=== PATIENT | female | born 1960 | race Two or more races ===

== ENCOUNTER 2018-05-07 15:07 | Inpatient (IN) | payer OTHER ==
[2018-05-07 17:45] VITALS: BMI 24.3
--- NOTE | 2018-05-07 19:57 | HP ---
CIWA Score - CIWA Score Nausea/Vomitin Muscle Tremors: 3 Anxiety: 2 Agitation: 2 Paroxysmal Sweats: 3 Orientation: 0-Oriented Tacttile Disturbances: 2-Mild Itch/Numbness/Burn Auditory Disturbances: 2-Mild Harshness/Frighten Visual Disturbances: 2-Mild Sensitivity Headache: 3-Moderate CIWA-Ar Total Score: 22 Admission ROS BHS - HPI Chief Complaint: DEPENDENT ON ETOH ONLY Allergies/Adverse Reactions: Allergies Allergy/AdvReac Type Severity Reaction Status Date / Time No Known Allergies Allergy Verified 05/07/18 18:23 History of Present Illness: THE PT. IS REQUESTING ADMISSION TO THE [facility] AND CAME FOR H AND PE Exam Limitations: No Limitations - Ebola screening Have you traveled outside of the country in the last 21 days: No (N) Have you had contact with anyone from an Ebola affected area: No Have you been sick,other than usual withdrawal symptoms: No Do you have a fever: No - Review of Systems Constitutional: See HPI, Loss of Appetite, Malaise, Weakness, Unintentional Wgt. Loss EENT: reports: See HPI Respiratory: reports: See HPI Cardiac: reports: See HPI, Edema GI: reports: See HPI, Poor Appetite, Abdominal cramping : reports: No Symptoms Reported, See HPI Musculoskeletal: reports: See HPI, Muscle Pain, Muscle Weakness Integumentary: reports: See HPI, Sweating Neuro: reports: See HPI, Headache, Tremors, Weakness Endocrine: reports: See HPI Hematology: reports: See HPI Psychiatric: reports: Judgement Intact, Orientated x3, Anxious, Depressed Patient History - Patient Medical History Hx Asthma: No Hx Hypertension: Yes Hx Seizures: No Hx Diabetes: No Hx Gastrointestinal Disorders: No Hx Depression: Yes (AND ANXIETY) - Patient Surgical History Past Surgical History: No - PPD History Previous Implant?: Yes Documented Results: Negative w/o proof - Reproductive History Patient is a Female of Child Bearing Age (11 -55 yrs old): No LMP comment: 5 YRS. AGO Patient : No - Smoking Cessation Smoking history: Current every day smoker Have you smoked in the past 12 months: Yes Cigars Per Day: 10 Hx Chewing Tobacco Use: No Initiated information on smoking cessation: Yes 'Breaking Loose' booklet given: 05/07/18 - Substance & Tx. History Hx Alcohol Use: Yes Hx Substance Use: No Substance Use Type: Alcohol Hx Substance Use Treatment: No - Substances Abused Alcohol Route: Oral Frequency: Daily Amount used: Beer 12 OZS. X 8 Age of first use: 34 Date of Last Use: 05/07/18 Family Disease History - Family Disease History Family History: Denies Admission Physical Exam [facility] - Vital Signs Vital Signs: Vital Signs - 24 hr 05/07/18 17:40 Temperature 98.5 F Pulse Rate 85 Respiratory 21 Rate Blood Pressure 195/85 - Physical General Appearance: Yes: No Apparent Distress, Appropriately Dressed, Alcohol on Breath, Thin, Tremorous, Sweating, Anxious HEENTM: Yes: Normocephalic, Normal Voice, GLORIA, Pharynx Normal Respiratory: Yes: Chest Non-Tender, Lungs Clear, Normal Breath Sounds, No Respiratory Distress, No Accessory Muscle Use Neck: Yes: No masses,lesions,Nodules, Supple, Trachea in good position Breast: Yes: Breast Exam Deferred, Axillae without masses Cardiology: Yes: Regular Rhythm, S1, S2, Tachycardia Abdominal: Yes: Normal Bowel Sounds, Non Tender, Soft, Protuberent Back: Yes: Normal Inspection Musculoskeletal: Yes: full range of Motion, Pelvis Stable, Muscle Pain, Muscle weakness Extremities: Yes: Normal Capillary Refill, Normal Range of Motion, Non-Tender, Tremors, Swelling Neurological: Yes: Fully Oriented, Alert, Motor Strength 5/5, Depressed Affect Integumentary: Yes: Normal Color, Warm, Moist Lymphatic: Yes: Within Normal Limits - Diagnostic (1) EtOH dependence Current Visit: Yes Status: Acute Qualifiers: Substance use status: uncomplicated Qualified Code(s): F10.20 - Alcohol dependence, uncomplicated (2) HTN (hypertension) Current Visit: Yes Status: Acute Qualifiers: Hypertension type: essential hypertension Qualified Code(s): I10 - Essential (primary) hypertension (3) Anxiety and depression Current Visit: Yes Status: Acute (4) Nicotine dependence Current Visit: Yes Status: Acute Qualifiers: Nicotine product type: other Substance use status: uncomplicated Qualified Code(s): F17.290 - Nicotine dependence, other tobacco product, uncomplicated Comment: SMOKING CIGARS Cleared for Admission [facility] - Detox or Rehab [facility] Level of Care: Medically Managed Detox Regimen/Protocol: Librium [facility] Breath Alcohol Content Breath Alcohol Content: 0.103 Urine Pregancy Test - Result Urine Test Results: Negative- NO Line Present Urine Drug Screen - Results Drug Screen Negative: Yes
[2018-05-07] MEDS ORDERED: MAGNESIUM HYDROX 2400MG/30ML ORAL SUSPENSION 30 ML CUP PO PRN (20:09)
[2018-05-07] MEDS ORDERED: ACETAMINOPHEN 325 MG TABLET (FP) PO PRN (20:09)
[2018-05-07] MEDS ORDERED: P-EPHED 60MG/TRIPROLIDI 2.5MG TABLET PO PRN (20:09)
[2018-05-07] MEDS ORDERED: hydrOXYzine PAMOATE 25 MG CAPSULE (FP) PO PRN (20:09)
[2018-05-07] MEDS ORDERED: guaiFENesin/D-METHORPHAN HB 10 ML UNIT-DOSE CUPS PO PRN (20:09)
[2018-05-07] MEDS ORDERED: MENTHOL/PHENOL 1 EACH UD MM PRN (20:09)
[2018-05-07] MEDS ORDERED: NICOTINE POLACRILEX 2 MG GUM BC PRN (20:09)
[2018-05-07] MEDS ORDERED: MAG HYDROX/AL HYDROX/SIMETH 30 ML UNIT-DOSE CUP PO PRN (20:09)
[2018-05-07] MEDS ORDERED: MAGNESIUM CITRATE 300 ML BOTTLE PO PRN (20:09)
[2018-05-07] MEDS ORDERED: chlordiazePOXIDE HCL 25 MG CAPSULE PO PRN (20:09)
[2018-05-07] MEDS ORDERED: LOPERAMIDE HCL 2 MG CAPSULE PO PRN (20:09)
[2018-05-07] MEDS ORDERED: chlordiazePOXIDE HCL 25 MG CAPSULE PO ONE (20:15)
[2018-05-07] MEDS ORDERED: MELATONIN 5 MG TABLETS PO PRN (22:00)
[2018-05-07] MEDS: THIAMINE HCL 100 MG TABLET (FP) PO SCH (22:32)
[2018-05-07] MEDS: FUROSEMIDE 40 MG TABLET (FP) PO SCH (22:32)
[2018-05-07] MEDS: amLODIPine BESYLATE 5 MG TABLET (FP) PO SCH (22:32)
[2018-05-07] MEDS: chlordiazePOXIDE HCL 25 MG CAPSULE PO SCH (22:49)
[2018-05-08] MEDS: chlordiazePOXIDE HCL 25 MG CAPSULE PO SCH ×4 (06:00→22:50)
[2018-05-08] MEDS: FUROSEMIDE 40 MG TABLET (FP) PO SCH ×2 (06:02→14:35)
[2018-05-08 09:56] LABS: HEMATOCRIT 36.3 % (32.4-45.2); HEMOGLOBIN 12.5 GM/dL (10.7-15.3); MCH 33.8 pg (25.7-33.7); MCHC 34.4 g/dl (32.0-36.0); MEAN CELL VOLUME 98.4 fl (80-96); MEAN PLT VOLUME 7.3 fl (7.5-11.1); PLATELET COUNT 225 K/MM3 (134-434); RBC 3.69 M/mm3 (3.60-5.2); RDW 12.8 % (11.6-15.6); WHITE BLOOD COUNT 4.5 K/mm3 (4.0-10.0)
[2018-05-08] MEDS: PRENATAL VITAMINS W/ FOLIC ACID TABLET (FP) PO SCH (10:23)
[2018-05-08] MEDS: amLODIPine BESYLATE 5 MG TABLET (FP) PO SCH (10:23)
[2018-05-08] MEDS: NICOTINE 14 MG/24 HOURS TOPICAL PATCH TD SCH (10:24)
--- NOTE | 2018-05-08 10:33 | PN ---
[facility] CIWA - CIWA Score Nausea/Vomitin Muscle Tremors: 3 Anxiety: 3 Agitation: 3 Paroxysmal Sweats: 1-Minimal Palms Moist Orientation: 0-Oriented Tacttile Disturbances: 1-Very Mild Itch/Numbness Auditory Disturbances: 1-Very Mild Visual Disturbances: 0-None Headache: 2-Mild CIWA-Ar Total Score: 17 S Progress Note (SOAP) Subjective: alert,irritable,anxious,interrupted sleep,tremor,edema both legs Objective: 05/08/18 10:30 Vital Signs Temperature 98.2 F 05/08/18 09:10 Pulse Rate 76 05/08/18 10:00 Respiratory Rate 18 05/08/18 10:00 Blood Pressure 176/75 05/08/18 09:10 O2 Sat by Pulse Oximetry (%) ekg nsr,inverted t in 1,avl,v2 to v6,lvh qt 464/501 no chest pain,no sob,no dizziness Laboratory Last Values WBC 4.5 K/mm3 (4.0-10.0) 05/08/18 07:00 RBC 3.69 M/mm3 (3.60-5.2) 05/08/18 07:00 Hgb 12.5 GM/dL (10.7-15.3) 05/08/18 07:00 Hct 36.3 % (32.4-45.2) 05/08/18 07:00 MCV 98.4 fl (80-96) H 05/08/18 07:00 MCH 33.8 pg (25.7-33.7) H 05/08/18 07:00 MCHC 34.4 g/dl (32.0-36.0) 05/08/18 07:00 RDW 12.8 % (11.6-15.6) 05/08/18 07:00 Plt Count 225 K/MM3 (134-434) 05/08/18 07:00 MPV 7.3 fl (7.5-11.1) L 05/08/18 07:00 labs pending repeat ekg today Assessment: 05/08/18 10:33 withdrawal symptom Plan: continue detox,repeat ekg today
--- NOTE | 2018-05-08 11:28 | EKG ---
Test Reason : Blood Pressure : / mmHG Vent. Rate : 073 BPM Atrial Rate : 073 BPM P-R Int : 172 ms QRS Dur : 102 ms QT Int : 426 ms P-R-T Axes : 059 063 117 degrees QTc Int : 469 ms NORMAL SINUS RHYTHM POSSIBLE LEFT ATRIAL ENLARGEMENT LEFT VENTRICULAR HYPERTROPHY NONSPECIFIC T WAVE ABNORMALITY PROLONGED QT ABNORMAL ECG Confirmed by MD ALONZO, RAFA ([id number]) on 05/08/2018 11:28:28 AM Referred By: Confirmed By:RAFA ROSADO MD
--- NOTE | 2018-05-08 11:30 | EKG ---
Test Reason : Blood Pressure : / mmHG Vent. Rate : 070 BPM Atrial Rate : 070 BPM P-R Int : 180 ms QRS Dur : 110 ms QT Int : 464 ms P-R-T Axes : 060 061 117 degrees QTc Int : 501 ms NORMAL SINUS RHYTHM VOLTAGE CRITERIA FOR LEFT VENTRICULAR HYPERTROPHY T WAVE ABNORMALITY, CONSIDER ANTEROLATERAL ISCHEMIA PROLONGED QT ABNORMAL ECG Confirmed by MD ALONZO, RAFA ([id number]) on 05/08/2018 11:30:12 AM Referred By: Confirmed By:RAFA ROSADO MD
[2018-05-08 12:00] LABS: CALCIUM 8.7 mg/dL (8.5-10.1); CHLORIDE 96 mmol/L (98-107); POTASSIUM 4.1 mmol/L (3.5-5.1); SODIUM 131 mmol/L (136-145)
[2018-05-08 12:07] LABS: ALK PHOS 69 U/L (45-117); ANION GAP 7 (8-16); BILIRUBIN,TOTAL 0.5 mg/dL (0.2-1.0); BLOOD UREA NITROGEN 9 mg/dL (7-18); CO2 28 mmol/L (21-32); CREATININE 0.7 mg/dL (0.55-1.02); GLUCOSE,RANDOM 96 mg/dL (74-106); SGOT/AST 23 U/L (15-37); SGPT/ALT 26 U/L (12-78); TOT PROT 7.3 g/dl (6.4-8.2)
[2018-05-08] MEDS: IBUPROFEN 400 MG TABLET (FP) PO PRN ×2 (14:57→22:50)
--- NOTE | 2018-05-08 15:14 | CONSULT ---
[facility] Psychiatric Consult - Data Date of interview: 05/08/18 Admission source: [facility] Identifying data: Patient is a 57 year old female, mother of one, unemployed, domiciled, and supported by [facility]. This is patient's first admission to detox at [facility]. Pt. admitted to for alcohol dependence. Substance Abuse History: Smoking Cessation. Smoking history: Current every day smoker. Have you smoked in the past 12 months: Yes. Cigars Per Day: 10. Hx Chewing Tobacco Use: No. Initiated information on smoking cessation: Yes. ' Breaking Loose' booklet given: 05/07/18. - Substance & Tx. History. Hx Alcohol Use: Yes. Hx Substance Use: No. Substance Use Type: Alcohol. Hx Substance Use Treatment: No. - Substances Abused. Alcohol. Route: Oral. Frequency: Daily. Amount used: Beer 12 OZS. X 8. Age of first use: 34. Date of Last Use: 05/07/18 Medical History: hypertension Psychiatric History: Patient reports one psychiatric hospitalization for depression at [facility] approximately 20 years ago (was prescribed abilify 5mg + Cogentin 1mg). Pt. denies h/o OPD. Pt. reports bilateral swelling and hypertension after her PCP restarted patient on abilify 10mg + Cogentin 1mg. Reports last taking abilify approximately 1-2 months ago. Pt. denies suicide attempt. Physical/Sexual Abuse/Trauma History: Denies Mental Status Exam - Mental Status Exam Alert and Oriented to: Time, Place, Person Cognitive Function: Good Patient Appearance: Well Groomed Mood: Hopeful, Euthymic Affect: Mood Congruent Patient Behavior: Appropriate, Cooperative Speech Pattern: Appropriate Voice Loudness: Normal Thought Process: Intact, Goal Oriented Thought Disorder: Not Present Hallucinations: Denies Suicidal Ideation: Denies Homicidal Ideation: Denies Insight/Judgement: Poor Sleep: Fair Appetite: Fair Muscle strength/Tone: Normal Gait/Station: Normal Psychiatric Findings - Problem List ([place] 1, 2,3) (1) Alcohol dependence with uncomplicated withdrawal Current Visit: Yes Status: Acute (2) HTN (hypertension) Current Visit: Yes Status: Acute Qualifiers: Hypertension type: essential hypertension Qualified Code(s): I10 - Essential (primary) hypertension (3) Nicotine dependence Current Visit: Yes Status: Acute Qualifiers: Nicotine product type: other Substance use status: uncomplicated Qualified Code(s): F17.290 - Nicotine dependence, other tobacco product, uncomplicated Comment: SMOKING CIGARS - Initial Treatment Plan Initial Treatment Plan: Psychoeducation provided. Detoxification in progress. Observation.
[2018-05-08] MEDS: LOSARTAN POTASSIUM 50 MG TABLET (FP) PO SCH (17:35)
[2018-05-08] MEDS ORDERED: amLODIPine BESYLATE 5 MG TABLET (FP) PO STA (22:52)
[2018-05-08] MEDS: THIAMINE HCL 100 MG TABLET (FP) PO SCH (22:53)
[2018-05-09] MEDS: chlordiazePOXIDE HCL 25 MG CAPSULE PO SCH ×3 (05:52→18:28)
[2018-05-09] MEDS: FUROSEMIDE 40 MG TABLET (FP) PO SCH (05:52)
[2018-05-09] MEDS ORDERED: HYDROCHLOROTHIAZIDE 12.5 MG CAPSULE (FP) PO SCH (10:00)
[2018-05-09] MEDS: LOSARTAN POTASSIUM 50 MG TABLET (FP) PO SCH (10:01)
[2018-05-09] MEDS: PRENATAL VITAMINS W/ FOLIC ACID TABLET (FP) PO SCH (10:01)
[2018-05-09] MEDS: amLODIPine BESYLATE 10 MG TABLET (FP) PO SCH (10:01)
[2018-05-09] MEDS: NICOTINE 14 MG/24 HOURS TOPICAL PATCH TD SCH (10:02)
--- NOTE | 2018-05-09 11:53 | PN ---
S CIWA - CIWA Score Nausea/Vomitin Muscle Tremors: 3 Anxiety: 3 Agitation: 2 Paroxysmal Sweats: 1-Minimal Palms Moist Orientation: 0-Oriented Tacttile Disturbances: 1-Very Mild Itch/Numbness Auditory Disturbances: 1-Very Mild Visual Disturbances: 0-None Headache: 2-Mild CIWA-Ar Total Score: 16 S Progress Note (SOAP) Subjective: alert,irritable,anxious,interrupted sleep,edema of legs and foot much less Objective: 05/09/18 11:51 Vital Signs Temperature 96.4 F L 05/09/18 09:10 Pulse Rate 75 05/09/18 09:10 Respiratory Rate 20 05/09/18 09:10 Blood Pressure 174/82 05/09/18 09:10 O2 Sat by Pulse Oximetry (%) Laboratory Last Values WBC 4.5 K/mm3 (4.0-10.0) 05/08/18 07:00 RBC 3.69 M/mm3 (3.60-5.2) 05/08/18 07:00 Hgb 12.5 GM/dL (10.7-15.3) 05/08/18 07:00 Hct 36.3 % (32.4-45.2) 05/08/18 07:00 MCV 98.4 fl (80-96) H 05/08/18 07:00 MCH 33.8 pg (25.7-33.7) H 05/08/18 07:00 MCHC 34.4 g/dl (32.0-36.0) 05/08/18 07:00 RDW 12.8 % (11.6-15.6) 05/08/18 07:00 Plt Count 225 K/MM3 (134-434) 05/08/18 07:00 MPV 7.3 fl (7.5-11.1) L 05/08/18 07:00 Sodium 131 mmol/L (136-145) L 05/08/18 07:00 Potassium 4.1 mmol/L (3.5-5.1) 05/08/18 07:00 Chloride 96 mmol/L (98-107) L 05/08/18 07:00 Carbon Dioxide 28 mmol/L (21-32) 05/08/18 07:00 Anion Gap 7 (8-16) L 05/08/18 07:00 BUN 9 mg/dL (7-18) 05/08/18 07:00 Creatinine 0.7 mg/dL (0.55-1.02) 05/08/18 07:00 Creat Clearance w eGFR > 60 (>60) 05/08/18 07:00 Random Glucose 96 mg/dL (74-106) 05/08/18 07:00 Calcium 8.7 mg/dL (8.5-10.1) 05/08/18 07:00 Total Bilirubin 0.5 mg/dL (0.2-1.0) 05/08/18 07:00 AST 23 U/L (15-37) 05/08/18 07:00 ALT 26 U/L (12-78) 05/08/18 07:00 Alkaline Phosphatase 69 U/L (45-117) 05/08/18 07:00 Total Protein 7.3 g/dl (6.4-8.2) 05/08/18 07:00 Albumin 4.0 g/dl (3.4-5.0) 05/08/18 07:00 RPR Titer Nonreactive (NONREACTIVE) 05/08/18 07:00 HIV 1&2 Antibody Screen Negative 05/08/18 07:00 HIV P24 Antigen Negative 05/08/18 07:00 Assessment: 05/09/18 11:51 withdrawal symptom Plan: continue detox,bp monitoring,na 131 hyponatremia,repeat bmp in am
[2018-05-09] MEDS ORDERED: cloNIDine HCL 0.1 MG TABLET PO ONE (15:00)
[2018-05-09 17:31] LABS: URINE APPEARANCE CLEAR; URINE BILIRUBIN NEGATIVE (<2.0 mg/dL); URINE COLOR COLORLESS; URINE GLUCOSE (UA) NEGATIVE (NEGATIVE); URINE KETONE NEGATIVE (NEGATIVE); URINE LEUK ESTERASE TRACE (NEGATIVE); URINE NITRITE NEGATIVE (NEGATIVE); URINE PROTEIN NEGATIVE (NEGATIVE); URINE UROBILINOGEN NEGATIVE mg/dL (0.2-1.0)
[2018-05-09 17:38] LABS: EPI CELLS RARE /HPF (FEW); URINE MUCUS RARE
[2018-05-09] MEDS: chlordiazePOXIDE 5 MG CAPSULE PO SCH (22:33)
[2018-05-09] MEDS: THIAMINE HCL 100 MG TABLET (FP) PO SCH (22:43)
[2018-05-10] MEDS: chlordiazePOXIDE 5 MG CAPSULE PO SCH ×3 (06:04→17:28)
--- NOTE | 2018-05-10 10:16 | PN ---
S Progress Note (SOAP) Subjective: alert,irritable,anxious,interrupted sleep, Objective: 05/10/18 10:12 Vital Signs Temperature 97.9 F 05/10/18 10:12 Pulse Rate 84 05/10/18 10:12 Respiratory Rate 16 05/10/18 10:12 Blood Pressure 186/88 05/10/18 10:12 O2 Sat by Pulse Oximetry (%) no chest pain,no sob,no dizziness repeat bmp pending Assessment: 05/10/18 10:14 withdrawal symptom Plan: continue detox,bp monitoring,increase hydrochlorothiazide to 25 mgs po daily, lasartan to 100 mgs po daily, continue amlodipine 10 mgs po daily,discharge in am
[2018-05-10] MEDS: PRENATAL VITAMINS W/ FOLIC ACID TABLET (FP) PO SCH (10:24)
[2018-05-10] MEDS: amLODIPine BESYLATE 10 MG TABLET (FP) PO SCH (10:24)
[2018-05-10] MEDS: FUROSEMIDE 40 MG TABLET (FP) PO SCH (10:24)
[2018-05-10] MEDS: LOSARTAN POTASSIUM 50 MG TABLET (FP) PO SCH (10:25)
[2018-05-10] MEDS: NICOTINE 14 MG/24 HOURS TOPICAL PATCH TD SCH (10:25)
[2018-05-10] MEDS: HYDROCHLOROTHIAZIDE 25 MG TABLET (FP) PO SCH (10:25)
[2018-05-10 10:46] LABS: ANION GAP 7 (8-16); BLOOD UREA NITROGEN 15 mg/dL (7-18); CALCIUM 9.2 mg/dL (8.5-10.1); CHLORIDE 94 mmol/L (98-107); CO2 31 mmol/L (21-32); CREATININE 0.6 mg/dL (0.55-1.02); GLUCOSE,RANDOM 77 mg/dL (74-106); POTASSIUM 3.9 mmol/L (3.5-5.1); SODIUM 132 mmol/L (136-145)
--- NOTE | 2018-05-10 21:30 | PN ---
S Progress Note Note: Vital Signs Temperature 97.7 F 05/10/18 18:27 Pulse Rate 81 05/10/18 18:27 Respiratory Rate 19 05/10/18 18:27 Blood Pressure 188/89 05/10/18 18:27 O2 Sat by Pulse Oximetry (%) asymptomatic elevated BP clonidine 0.1mg increase fluids continue to monitor
[2018-05-10] MEDS ORDERED: cloNIDine HCL 0.1 MG TABLET PO ONE (21:45)
[2018-05-10] MEDS: chlordiazePOXIDE HCL 10 MG CAPSULE PO SCH (22:20)
[2018-05-10] MEDS: THIAMINE HCL 100 MG TABLET (FP) PO SCH (22:20)
[2018-05-11] MEDS: chlordiazePOXIDE HCL 10 MG CAPSULE PO SCH ×2 (06:07→10:20)
--- NOTE | 2018-05-11 08:33 | PN ---
S Progress Note (SOAP) Subjective: alert,no complaint Objective: 05/11/18 08:31 Vital Signs Temperature 97.3 F L 05/11/18 06:00 Pulse Rate 75 05/11/18 07:00 Respiratory Rate 20 05/11/18 07:00 Blood Pressure 158/89 05/11/18 07:00 O2 Sat by Pulse Oximetry (%) Assessment: 05/11/18 08:31 detox completed,no withdrawal symptom Plan: discharge today,follow up [facility] arrangement
--- NOTE | 2018-05-11 08:36 | DS ---
[facility] Detox Discharge Summary Admission Date: 05/07/18 Discharge Date: 05/11/18 - History Present History: Alcohol Dependence Additional Comments: follow up [facility] as arrangement Pertinent Past History: essential hypertension edema both legs - Physical Exam Results Vital Signs: Vital Signs Temperature 97.3 F L 05/11/18 06:00 Pulse Rate 75 05/11/18 07:00 Respiratory Rate 20 05/11/18 07:00 Blood Pressure 158/89 05/11/18 07:00 O2 Sat by Pulse Oximetry (%) Pertinent Admission Physical Exam Findings: withdrawal signs and symptom Vital Signs Temperature 97.3 F L 05/11/18 06:00 Pulse Rate 75 05/11/18 07:00 Respiratory Rate 20 05/11/18 07:00 Blood Pressure 158/89 05/11/18 07:00 O2 Sat by Pulse Oximetry (%) Laboratory Last Values WBC 4.5 K/mm3 (4.0-10.0) 05/08/18 07:00 RBC 3.69 M/mm3 (3.60-5.2) 05/08/18 07:00 Hgb 12.5 GM/dL (10.7-15.3) 05/08/18 07:00 Hct 36.3 % (32.4-45.2) 05/08/18 07:00 MCV 98.4 fl (80-96) H 05/08/18 07:00 MCH 33.8 pg (25.7-33.7) H 05/08/18 07:00 MCHC 34.4 g/dl (32.0-36.0) 05/08/18 07:00 RDW 12.8 % (11.6-15.6) 05/08/18 07:00 Plt Count 225 K/MM3 (134-434) 05/08/18 07:00 MPV 7.3 fl (7.5-11.1) L 05/08/18 07:00 Sodium 132 mmol/L (136-145) L 05/10/18 07:30 Potassium 3.9 mmol/L (3.5-5.1) 05/10/18 07:30 Chloride 94 mmol/L (98-107) L 05/10/18 07:30 Carbon Dioxide 31 mmol/L (21-32) 05/10/18 07:30 Anion Gap 7 (8-16) L 05/10/18 07:30 BUN 15 mg/dL (7-18) 05/10/18 07:30 Creatinine 0.6 mg/dL (0.55-1.02) 05/10/18 07:30 Creat Clearance w eGFR > 60 (>60) 05/10/18 07:30 Random Glucose 77 mg/dL (74-106) 05/10/18 07:30 Calcium 9.2 mg/dL (8.5-10.1) 05/10/18 07:30 Total Bilirubin 0.5 mg/dL (0.2-1.0) 05/08/18 07:00 AST 23 U/L (15-37) 05/08/18 07:00 ALT 26 U/L (12-78) 05/08/18 07:00 Alkaline Phosphatase 69 U/L (45-117) 05/08/18 07:00 Total Protein 7.3 g/dl (6.4-8.2) 05/08/18 07:00 Albumin 4.0 g/dl (3.4-5.0) 05/08/18 07:00 Urine Color Colorless 05/09/18 14:00 Urine Appearance Clear 05/09/18 14:00 Urine pH 7.0 (5.0-8.0) 05/09/18 14:00 Ur Specific [place] 1.004 (1.001-1.035) 05/09/18 14:00 Urine Protein Negative (NEGATIVE) 05/09/18 14:00 Urine Glucose (UA) Negative (NEGATIVE) 05/09/18 14:00 Urine Ketones Negative (NEGATIVE) 05/09/18 14:00 Urine Blood Negative (NEGATIVE) 05/09/18 14:00 Urine Nitrite Negative (NEGATIVE) 05/09/18 14:00 Urine Bilirubin Negative (<2.0 mg/dL) 05/09/18 14:00 Urine Urobilinogen Negative mg/dL (0.2-1.0) 05/09/18 14:00 Ur Leukocyte Esterase Trace (NEGATIVE) 05/09/18 14:00 Urine WBC (Auto) 6 /hpf (3-5) 05/09/18 14:00 Urine RBC (Auto) 1 /hpf (0-3) 05/09/18 14:00 Ur Epithelial Cells Rare /HPF (FEW) 05/09/18 14:00 Urine Mucus Rare 05/09/18 14:00 RPR Titer Nonreactive (NONREACTIVE) 05/08/18 07:00 HIV 1&2 Antibody Screen Negative 05/08/18 07:00 HIV P24 Antigen Negative 05/08/18 07:00 - Treatment Hospital Course: Detox Protocol Followed, Detoxed Safely, Responded well, Discharged Condition Good, Rehab Referral Accepted Patient has Accepted a Rehab Referral to: [facility] - Medication Discharge Medications: Ambulatory Orders Amlodipine Besylate [Norvasc -] 5 mg PO DAILY 05/07/18 Aripiprazole [Abilify -] 5 mg PO DAILY 05/07/18 Benztropine Mesylate [Cogentin -] 0.5 mg PO HS 05/07/18 Hyzaar 50-12.5 Tablet 1 tab PO DAILY 05/07/18 - Diagnosis (1) Alcohol dependence with uncomplicated withdrawal Current Visit: Yes Status: Acute (2) HTN (hypertension) Current Visit: Yes Status: Acute Qualifiers: Hypertension type: essential hypertension Qualified Code(s): I10 - Essential (primary) hypertension (3) Nicotine dependence Current Visit: Yes Status: Acute Qualifiers: Nicotine product type: other Substance use status: uncomplicated Qualified Code(s): F17.290 - Nicotine dependence, other tobacco product, uncomplicated (4) Bilateral edema of lower extremity Current Visit: Yes Status: Acute (5) Hyponatremia Current Visit: Yes Status: Acute - AMA Did Patient Leave Against Medical Advice: No
[2018-05-11 09:18] VITALS: BP 153/75; PULSE 74; TEMP 97.8
[2018-05-11] MEDS: amLODIPine BESYLATE 10 MG TABLET (FP) PO SCH (10:20)
[2018-05-11] MEDS: LOSARTAN POTASSIUM 50 MG TABLET (FP) PO SCH (10:20)
[2018-05-11] MEDS: HYDROCHLOROTHIAZIDE 25 MG TABLET (FP) PO SCH (10:21)
[2018-05-11] MEDS: PRENATAL VITAMINS W/ FOLIC ACID TABLET (FP) PO SCH (10:21)
[2018-05-11] MEDS: FUROSEMIDE 40 MG TABLET (FP) PO SCH (10:21)
[2018-05-11] MEDS: NICOTINE 14 MG/24 HOURS TOPICAL PATCH TD SCH (10:21)
== END 2018-05-11 11:20 | disposition other institution (70) | DRG 775 ==
LOC: YASAS 15:07 → Y6N 19:59
PROVIDERS: ADMIT Surgery; ATTEND Surgery
PROC: HZ2ZZZZ Detoxification Services for Substance Abuse Treatment (ICD-10-PCS; principal; 2018-05-07)
DX: F10.230 Alcohol dependence with withdrawal, uncomplicated (principal); F17.290 Nicotine dependence, other tobacco product, uncomplicated; F41.8 Other specified anxiety disorders; I10 Essential (primary) hypertension; R60.0 Localized edema; E87.1 Hypo-osmolality and hyponatremia
CPT/HCPCS: 36415; 71046-TC-FY; 80048; 80053; 81003; 81015; 85027; 86593; 87389; 93005; 93010; J0735